=== PATIENT | female | born 1995 | race African-American/Black ===

== ENCOUNTER 2020-09-10 11:15 | Emergency (ER) | payer SELFPAY ==
--- NOTE | ~2020-09-10 | XR_ITS ---
EXAMINATION: XR knee RT min 4V EXAM DATE: 09/10/2020 11:55 INDICATION: No known recent injury provided at this time. Pain of the right knee. TECHNIQUE: Right knee frontal, crosstable lateral, orthogonal oblique projections for interpretation . There is no prior study for comparison. FINDINGS: No evidence osteochondral defect or joint body in the right knee joint. No joint effusio n. There are no acute fractures or dislocations identified. There is no subcutaneous gas. The soft tissue is unremarkable. There are no radiopaque foreign bodies. IMPRESSION: 1. Unremarkable right knee exam. Reviewed, dictated and finalized at location A. [facility] ART THERAPIST
[2020-09-10 11:46] VITALS: BP 122/66; PULSE 85; RESP 20; TEMP 37.1; O2SAT 100
--- NOTE | 2020-09-10 12:00 | ED.HA ---
HPI - Headache General Chief Complaint: Headache Stated Complaint: , headcahe Time Seen by Provider: 09/10/20 11:24 Source: patient Mode of arrival: ambulatory Limitations: no limitations History of Present Illness HPI Narrative: This is a 25 year old female that presents to the ER for headaches over the last couple of weeks. Reports she is 10 weeks . She has had a normal ultrasound, she has her first OB appointment next week. Reports she has gotten 2 headaches this . She doesn't usually get headaches. She has not taken anything for her headache. Also reports history of knee problems and that her right knee has been bothering her. Especially while walking down stairs. No known injury or trauma. Denies fever, stiff neck, vision changes, vomiting, numbness, or weakness. Related Data Allergies Allergy/AdvReac Type Severity Reaction Status Date / Time No Known Allergies Allergy Verified 09/10/20 11:48 Review of Systems Review of Systems: Narrative: CONSTITUTIONAL: Denies fever EYES: Denies visual changes GASTROINTESTINAL: Denies vomiting MUSCULOSKELETAL: Reports joint pain, and myalgia. NEUROLOGIC: Reports headache. Denies numbness, or weakness. All systems reviewed & are unremarkable except as noted in HPI and below PMFSH Social History Social History (Updated 09/10/20 @ 12:04 by Mariam De Leon PA-C) Smoking status: Never smoker Substance use: never Exam Narrative: Exam Narrative: GENERAL: Well-appearing, well-nourished, and in no acute distress. HEAD: Normocephalic, atraumatic. EYES: PERRLA and EOMI. ENT: Nares clear, no rhinorrhea or epistaxis. Mucous membranes moist. Oropharynx without tonsillar hypertrophy exudate or other lesions. Bilateral TMs pearly spencer non-bulging NECK: Supple. No adenopathy or masses. Normal ROM CHEST: Clear to auscultation. No respiratory distress. No wheezes rales or rhonchi HEART: Regular rate and rhythm. No murmur heard. Normal peripheral pulses. EXTREMITIES: Normal range of motion. No edema or obvious deformity. Strength equal in bilateral upper and lower extremities (5/5). Normal DP pulses SKIN: Warm, dry, no rash. NEURO: No focal deficits. Alert and oriented x3. Cranial nerves II through XII grossly intact. Negative Kernig and Brudzinski PSYCH: Normal mood and affect Course Vital Signs Vital signs: Vital Signs Temperature 98.7 F 09/10/20 11:46 Pulse Rate 85 09/10/20 11:46 Respiratory Rate 20 09/10/20 11:46 Blood Pressure 122/66 09/10/20 11:46 Pulse Oximetry 100 09/10/20 11:46 Temperature 98.7 F 09/10/20 11:46 Pulse Rate 85 09/10/20 11:46 Respiratory Rate 20 09/10/20 11:46 Blood Pressure 122/66 09/10/20 11:46 Pulse Oximetry 100 09/10/20 11:46 MDM - Headache MDM Narrative Medical decision making narrative: Patient presents to the emergency department for headaches this . Reports she has only had 2 headaches this . She does not like taking medication so has not taken anything for her headaches. She would not like me to give her anything today for headache. She is afebrile and nontoxic-appearing. She is neurologically intact. She was instructed that she may take Tylenol as needed for her headaches. She was instructed to follow-up with her OB at her scheduled appointment. Reports she has had a normal ultrasound this . Denies any related problems, no vaginal bleeding or pelvic cramping. Also was reporting pain in the right knee, does report history of knee problems in the past. No recent injury or trauma. Right knee x-ray is without acute findings. Was instructed to rest, ice and take Tylenol as needed for pain Imaging Data Radiologist's impression: ITS Impressions Knee X-Ray 09/10/20 11:58 IMPRESSION: 1. Unremarkable right knee exam. Critical Care Time Critical Care Time Critical Care Time: No Discharge Plan Discharge Clinical Impression: A
== END 2020-09-10 13:43 | disposition home or self-care (01) ==
PROVIDERS: Emergency Provider Emergency Medicine
DX: O26.891 Other specified pregnancy related conditions, first trimester (principal); Z3A.10 10 weeks gestation of pregnancy; R51.9 Headache, unspecified; M25.561 Pain in right knee
CPT/HCPCS: 73564; 99283